=== PATIENT | male | born 1965 | race Caucasian/White ===

== ENCOUNTER 2017-10-27 12:43 | Emergency (ER) | payer OTHER ==
[2017-10-27] MEDS ORDERED: Sodium Chloride 0.9% 10 ML Syringe FLUSH PRN (12:52)
--- NOTE | 2017-10-27 13:07 | EDM.PDOC ---
ED HPI GENERAL MEDICAL PROBLEM - General Chief Complaint: Respiratory Problem Stated Complaint: [facility] Time Seen by Provider: 10/27/17 12:45 Source of Information: Reports: Patient History Limitations: Reports: No Limitations - History of Present Illness INITIAL COMMENTS - FREE TEXT/NARRATIVE: 52-year-old male presents from the [place] ambulance service for evaluation and treatment of wheezing and shortness of breath. Reportedly the patient was at [facility] [facility] ambulance clinic today. They were concerned that he was having an NV and was sent to us for further management and care. Patient reports he has been feeling ill for the last 2 days. Reports symptoms of shortness of breath, wheezing, nausea, vomiting and diarrhea. He states that he's had some chest tightness and feels he has difficulty taking a breath but does not report any chest pain. Patient was given 125 mg Solu-Medrol and albuterol neb prior to arrival in the ER by EMS. Reports that his symptoms have substantially improved since coming to the ER. Reportedly the patient had a chest x-ray and influenza screen done in [place], the influenza screen was negative. Chest x-ray was unremarkable. 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 - Related Data Allergies Allergy/AdvReac Type Severity Reaction Status Date / Time No Known Allergies Allergy Verified 10/27/17 12:52 Home Meds: Home Meds Albuterol [IJD: Ventolin HFA] 2 puff INH .TWICE DAILY #18 gm 10/27/17 [Rx] Azithromycin [IJD: Azithromycin] 250 mg PO DAILY #6 tab 10/27/17 [Rx] Lisinopril 40 mg PO DAILY 10/27/17 [History] ED ROS GENERAL - Review of Systems Review Of Systems: See Below Constitutional: Reports: Chills Respiratory: Reports: Shortness of Breath, Cough, Sputum Cardiovascular: Reports: Chest Pain (tightness), Lightheadedness (associated wthi coughing) GI/Abdominal: Reports: Diarrhea, Nausea, Vomiting. Denies: Abdominal Pain Neurological: Denies: Syncope ED EXAM, GENERAL - Physical Exam Exam: See Below Exam Limited By: No Limitations General Appearance: Alert, WD/WN, No Apparent Distress, Obese Ears: Normal External Exam Nose: Normal Inspection Throat/Mouth: Normal Inspection, Normal Lips, Normal Voice, No Airway Compromise Respiratory/Chest: No Respiratory Distress, Rhonchi (diffuse bilateral lung bases), Wheezing (expiratory) Cardiovascular: Normal Peripheral Pulses, Regular Rate, Rhythm, No Murmur GI/Abdominal: Soft, Non-Tender Neurological: Alert, Oriented, Normal Cognition Psychiatric: Normal Affect, Normal Mood Skin Exam: Warm, Dry, Normal Color EKG INTERPRETATION EKG Date: 10/27/17 Time: 13:40 Rhythm: NSR Rate (Beats/Min): 82 [place]: Normal P-Wave: Present QRS: RBBB (incomplete) ST-T: Normal QT: Normal EKG Interpretation Comments: NSR at 822 bpm. No acute changes. Incomplete RBBB. Reviewed by myself and Dr. Sharpe. Course - Vital Signs Last Recorded V/S: Last Vital Signs Temp 36.2 C 10/27/17 12:48 Pulse 86 10/27/17 12:48 Resp 22 H 10/27/17 12:48 BP 157/115 H 10/27/17 12:48 Pulse Ox 94 L 10/27/17 12:48 - Orders/Labs/Meds Orders: Active Orders 24 hr Category Date Time Status Cardiac Monitoring [RC] . DIRECTED Care 10/27/17 12:52 Active EKG Documentation Completion [RC] ASDIRECTED Care 10/27/17 12:53 Active Peripheral IV Care [RC] . DIRECTED Care 10/27/17 12:53 Active Chest 2V [CR] Stat Exams 10/27/17 12:52 Taken CULTURE BLOOD [BC] Stat Lab 10/27/17 13:10 Received CULTURE BLOOD [BC] Stat Lab 10/27/17 13:22 Received Blood Culture x2 Reflex Set [OM.PC] Stat Oth 10/27/17 12:52 Ordered Peripheral IV Insertion Adult [OM.PC] Routine Oth 10/27/17 12:52 Ordered EKG 12 Lead [EK] Stat Ther 10/27/17 12:52 Ordered Labs: Laboratory Tests 10/27/17 10/27/17 10/27/17 Range/Units 13:10 13:10 13:10 WBC 8.35 (4.23-9.07) K/mm3 RBC 5.35 (4.63-6.08) M/mm3 Hgb 15.3 (13.7-17.5) gm/L Hct 46.8 (40.1-51.0) % MCV 87.5 (79.0-92.2) fl MCH 28.6 (25.7-32.2) pg MCHC 32.7 (32.2-35.5) g/dl RDW Std Deviation 48.2 H (35.1-43.9) fL Plt Count 254 (163-337) K/mm3 MPV 9.5 (9.4-12.3) fl Neutrophils % (Manual) 75 H (40-60) % Band Neutrophils % 1 (0-10) % Lymphocytes % (Manual) 17 L (20-40) % Atypical Lymphs % 0 % Monocytes % (Manual) 4 (2-10) % Eosinophils % (Manual) 3 (0.8-7.0) % Basophils % (Manual) 0 L (0.2-1.2) Platelet Estimate Adequate RBC Morph Comment Normal Sodium 143 (136-145) mEq/L Potassium 3.5 (3.5-5.1) mEq/L Chloride 105 (98-107) mEq/L Carbon Dioxide 28 (21-32) mEq/L Anion Gap 13.5 (5-15) BUN 11 (7-18) mg/dL Creatinine 0.7 (0.7-1.3) mg/dL Est Cr Clr Drug Dosing 130.36 mL/min Estimated GFR (MDRD) > 60 (>60) mL/min BUN/Creatinine Ratio 15.7 (14-18) Glucose 131 H (74-106) mg/dL Lactic Acid 1.4 (0.4-2.0) mmol/L Calcium 9.0 (8.5-10.1) mg/dL Total Bilirubin 0.5 (0.2-1.0) mg/dL AST 25 (15-37) U/L ALT 57 (16-63) U/L Alkaline Phosphatase 62 (46-116) U/L Troponin I < 0.017 (0.00-0.056) ng/mL C-Reactive Protein 2.4 H* (<1.0) mg/dL NT-Pro-B Natriuret Pep 63 (0-125) pg/mL Total Protein 7.1 (6.4-8.2) g/dl Albumin 3.5 (3.4-5.0) g/dl Globulin 3.6 gm/dL Albumin/Globulin Ratio 1.0 (1-2) Lipase 83 (73-393) U/L Urine Color (Yellow) Urine Appearance (Clear) Urine pH (5.0-8.0) Ur Specific [place] (1.005-1.030) Urine Protein (Negative) Urine Glucose (UA) (Negative) Urine Ketones (Negative) Urine Occult Blood (Negative) Urine Nitrite (Negative) Urine Bilirubin (Negative) Urine Urobilinogen (0.2-1.0) Ur Leukocyte Esterase (Negative) Urine RBC (0-5) /hpf Urine WBC (0-5) /hpf Ur Epithelial Cells (0-5) /hpf Urine Bacteria (FEW) /hpf Urine Mucus (FEW) /hpf 10/27/17 10/27/17 Range/Units 14:00 16:24 WBC (4.23-9.07) K/mm3 RBC (4.63-6.08) M/mm3 Hgb (13.7-17.5) gm/L Hct (40.1-51.0) % MCV (79.0-92.2) fl MCH (25.7-32.2) pg MCHC (32.2-35.5) g/dl RDW Std Deviation (35.1-43.9) fL Plt Count (163-337) K/mm3 MPV (9.4-12.3) fl Neutrophils % (Manual) (40-60) % Band Neutrophils % (0-10) % Lymphocytes % (Manual) (20-40) % Atypical Lymphs % % Monocytes % (Manual) (2-10) % Eosinophils % (Manual) (0.8-7.0) % Basophils % (Manual) (0.2-1.2) Platelet Estimate RBC Morph Comment Sodium (136-145) mEq/L Potassium (3.5-5.1) mEq/L Chloride (98-107) mEq/L Carbon Dioxide (21-32) mEq/L Anion Gap (5-15) BUN (7-18) mg/dL Creatinine (0.7-1.3) mg/dL Est Cr Clr Drug Dosing mL/min Estimated GFR (MDRD) (>60) mL/min BUN/Creatinine Ratio (14-18) Glucose (74-106) mg/dL Lactic Acid (0.4-2.0) mmol/L Calcium (8.5-10.1) mg/dL Total Bilirubin (0.2-1.0) mg/dL AST (15-37) U/L ALT (16-63) U/L Alkaline Phosphatase (46-116) U/L Troponin I < 0.017 (0.00-0.056) ng/mL C-Reactive Protein (<1.0) mg/dL NT-Pro-B Natriuret Pep (0-125) pg/mL Total Protein (6.4-8.2) g/dl Albumin (3.4-5.0) g/dl Globulin gm/dL Albumin/Globulin Ratio (1-2) Lipase (73-393) U/L Urine Color Yellow (Yellow) Urine Appearance Clear (Clear) Urine pH 6.5 (5.0-8.0) Ur Specific [place] 1.025 (1.005-1.030) Urine Protein Trace H (Negative) Urine Glucose (UA) Negative (Negative) Urine Ketones 1+ H (Negative) Urine Occult Blood Negative (Negative) Urine Nitrite Negative (Negative) Urine Bilirubin 1+ H (Negative) Urine Urobilinogen 0.2 (0.2-1.0) Ur Leukocyte Esterase Negative (Negative) Urine RBC 0-5 (0-5) /hpf Urine WBC 0-5 (0-5) /hpf Ur Epithelial Cells 0-5 (0-5) /hpf Urine Bacteria Few (FEW) /hpf Urine Mucus Many H (FEW) /hpf Meds: Medications Discontinued Medications Generic Name Dose Route Start Last Admin Trade Name Freq PRN Reason Stop Dose Admin Sodium Chloride 10 ml 10/27/17 12:52 10/27/17 13:01 Saline Flush FLUSH 10 ml ASDIRECTED PRN Administration Keep Vein Open - Radiology Interpretation Free Text/Narrative:: chest xray shows no acute intrathoracoc process. - Re-Assessments/Exams Free Text/Narrative Re-Assessment/Exam: 10/27/17 15:47 I reviewed the labs, ekg and chest xray with the patient. He has eaten. In no obvious distress. Resting comfortable. Declines medication for pain. Plan is to repeat trop at 16:10 and if continues to be negative will treat for bronchitis and send home. 10/27/17 17:00 Repeat troponin returns negative. Will discharge home with albuterol for shortness of breath and a Z-Enrique. Follow-up with primary care provider in one week. Departure - Departure Time of Disposition: 17:00 Disposition: Home, Self-Care 01 Condition: Fair Clinical Impression: Bronchitis - Discharge Information Prescriptions: Albuterol [IJD: Ventolin HFA] 2 puff INH .TWICE DAILY #18 gm Azithromycin [IJD: Azithromycin] 250 mg PO DAILY #6 tab Instructions: Acute Bronchitis Referrals: PCP,Not In Area [Primary Care Provider] - Forms: ED Department Discharge Additional Instructions: Azithromycin 2 tabs on day 1 followed by 1 tablet day 2 through 5 for 5 days of antibiotic total. Albuterol 1-2 puffs every 4-6 hours as needed for shortness of breath. [id number] Tylenol or Motrin as needed for additional headache and additional symptom relief. Make sure your are drinking plenty of fluids. Follow-up with your primary care provider in one week for recheck. Please return to the ER if your symptoms change or worsen. - My Orders Last 24 Hours: My Active Orders 10/27/17 12:52 Cardiac Monitoring [RC] . DIRECTED Chest 2V [CR] Stat Blood Culture x2 Reflex Set [OM.PC] Stat Peripheral IV Insertion Adult [OM.PC] Routine EKG 12 Lead [EK] Stat 10/27/17 12:53 EKG Documentation Completion [RC] ASDIRECTED Peripheral IV Care [RC] . DIRECTED 10/27/17 13:10 CULTURE BLOOD [BC] Stat 10/27/17 13:22 CULTURE BLOOD [BC] Stat - Assessment/Plan Last 24 Hours: My Active Orders 10/27/17 12:52 Cardiac Monitoring [RC] . DIRECTED Chest 2V [CR] Stat Blood Culture x2 Reflex Set [OM.PC] Stat Peripheral IV Insertion Adult [OM.PC] Routine EKG 12 Lead [EK] Stat 10/27/17 12:53 EKG Documentation Completion [RC] ASDIRECTED Peripheral IV Care [RC] . DIRECTED 10/27/17 13:10 CULTURE BLOOD [BC] Stat 10/27/17 13:22 CULTURE BLOOD [BC] Stat
--- NOTE | 2017-10-28 07:03 | CR ---
Chest: Two views of the chest were obtained. Comparison: No prior study. Heart size and mediastinum are normal. Lungs are clear. Diaphragms are slightly flattened on the lateral view. Bony structures are unremarkable. Impression: 1. Questionable emphysematous change. Nothing acute is seen. Diagnostic code #2
== END 2017-10-27 17:17 | disposition home or self-care (01) ==
LOC: JD.ED 12:43
DX: J40 Bronchitis, not specified as acute or chronic (principal); Z79.899 Other long term (current) drug therapy
CPT/HCPCS: 36415; 71046; 80053; 81001; 83605; 83690; 83880; 84484; 85025; 86140; 87040; 87804; 93005; 99285; J7050; 93010; 99283-25

== ENCOUNTER 2021-06-20 10:12 | Emergency (ER) | payer BC, OTHER ==
--- NOTE | 2021-06-20 11:11 | CR ---
Chest: PA and lateral views of the chest were obtained. Comparison: Prior chest x-ray of 10/27/17. Heart size and mediastinum are normal. Lungs show slight atelectasis on the lateral view within the lingula. Lungs otherwise are clear. Diaphragms are flattened on the lateral view. Mild degenerative change is noted within the right shoulder. Slight anterior wedge deformity within the lower thoracic spine is seen which is stable. Impression: 1. Findings believed to be nonacute as noted above. 2. Probable emphysematous change. 3. Nothing acute is seen on 2 view chest x-ray. Diagnostic code #2
[2021-06-20] MEDS ORDERED: Aspirin 81 MG Tab.Chew PO ONE (11:33)
[2021-06-20] MEDS ORDERED: Heparin Sodium 5,000 Units/ML Vial IVPUSH ONE (11:33)
[2021-06-20] MEDS ORDERED: Heparin Sodium/D5W 25,000 UNITS/500 ML BAG IV SCH (11:45)
--- NOTE | 2021-06-20 11:46 | EDM.PDOC ---
ED HPI GENERAL MEDICAL PROBLEM - General Chief Complaint: Chest Pain Stated Complaint: CHEST PAIN Time Seen by Provider: 06/20/21 10:14 Source of Information: Reports: Patient, RN Notes Reviewed History Limitations: Reports: No Limitations - History of Present Illness INITIAL COMMENTS - FREE TEXT/NARRATIVE: Patient is a 56-year-old male presenting to the emergency department with complaints of right-sided and midsternal chest pain that began yesterday. 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 The pain improves when he is resting but worsens with any type of exertion. States the pain is not present at this time but anytime he exerts himself in any way it returns. He does complain of shortness of breath associated with this pain. He has a history of hypertension as well as "lung issues "related to being a previous 3 pack/day smoker. He is not sure if he is ever been formally diagnosed with COPD. Currently uses albuterol inhaler twice daily. He denies any history of GA. Also reports that a few days ago, he noticed a mostly healed bruise to his right upper chest. He is unsure the cause of this. He is also been experiencing a mild rash which lynn on his right forearm began about 3 days ago, however he states this is mostly resolved. Right Chest Pain Score (Numeric/FACES): 8 - Related Data Allergies Allergy/AdvReac Type Severity Reaction Status Date / Time No Known Allergies Allergy Verified 06/20/21 10:29 Home Meds: Home Meds Lisinopril 40 mg PO BID 10/27/17 [History] Albuterol [IJD: Ventolin HFA] 2 puff INH BID 06/20/21 [History] Metoprolol Tartrate 50 mg PO BID 06/20/21 [History] hydroCHLOROthiazide [Hydrochlorothiazide] 12.5 mg PO DAILY 06/20/21 [History] Past Medical History Cardiovascular History: Reports: Hypertension Musculoskeletal History: Reports: Other (See Below) Other Musculoskeletal History: broken right wrist Endocrine/Metabolic History: Reports: Obesity/BMI 30+ - Past Surgical History GI Surgical History: Reports: Hernia, Abdominal Social & Family History - Family History Family Medical History: No Pertinent Family History - Tobacco Use Tobacco Use Status *Q: Never Tobacco User - Caffeine Use Caffeine Use: Reports: Coffee - Recreational Drug Use Recreational Drug Use: No ED ROS GENERAL - Review of Systems Review Of Systems: See Below Constitutional: Reports: No Symptoms. Denies: Fever, Chills HEENT: Reports: No Symptoms Respiratory: Reports: Shortness of Breath. Denies: Wheezing, Cough Cardiovascular: Reports: Chest Pain, Dyspnea on Exertion. Denies: Lightheadedness, Palpitations Endocrine: Reports: No Symptoms GI/Abdominal: Reports: No Symptoms : Reports: No Symptoms Musculoskeletal: Reports: No Symptoms Skin: Reports: Bruising, Rash Neurological: Reports: No Symptoms Psychiatric: Reports: No Symptoms Hematologic/Lymphatic: Reports: No Symptoms Immunologic: Reports: No Symptoms ED EXAM, GENERAL - Physical Exam Exam: See Below Exam Limited By: No Limitations General Appearance: Alert, WD/WN, No Apparent Distress Respiratory/Chest: No Respiratory Distress, No Accessory Muscle Use, Chest Non- Tender, Other (Faint expiratory wheeze throughout lung carrion. Faint, yellowish hue to the right upper chest near the shoulder suggestive of mostly healed ecchymosis. No tenderness over this area.) Cardiovascular: Normal Peripheral Pulses, Regular Rate, Rhythm, No Edema, No Gallop, No JVD, No Murmur, No Rub GI/Abdominal: Normal Bowel Sounds, Soft, Non-Tender, No Organomegaly, No Abnormal Bruit, No Mass Extremities: Other Neurological: Alert, Oriented, CN II-XII Intact, Normal Cognition, Normal Gait, Normal Reflexes, No Motor/Sensory Deficits Psychiatric: Normal Affect, Normal Mood Skin Exam: Warm, Dry, Intact, Normal Color, Rash (Mild maculopapular rash to the right forearm.) #1 Interpretation EKG Date: 06/20/21 Time: 10:25 Rhythm: NSR Rate (Beats/Min): 82 [place]: Normal P-Wave: Present QRS: RBBB ST-T: Normal QT: Normal Course - Vital Signs Last Recorded V/S: Last Vital Signs Temp 97.4 F 06/20/21 10:26 Pulse 80 06/20/21 13:07 Resp 20 06/20/21 13:07 BP 104/67 06/20/21 13:07 Pulse Ox 93 L 06/20/21 13:07 - Orders/Labs/Meds Labs: Laboratory Tests 06/20/21 06/20/21 06/20/21 Range/Units 10:52 10:52 10:52 WBC (4.23-9.07) K/mm3 RBC (4.63-6.08) M/mm3 Hgb (13.7-17.5) gm/dl Hct (40.1-51.0) % MCV (79.0-92.2) fl MCH (25.7-32.2) pg MCHC (32.2-35.5) g/dl RDW Std Deviation (35.1-43.9) fL Plt Count (163-337) K/mm3 MPV (9.4-12.3) fl Neut % (Auto) (34.0-67.9) % Lymph % (Auto) (21.8-53.1) % Whit[place] % (Auto) (5.3-12.2) % Eos % (Auto) (0.8-7.0) Baso % (Auto) (0.1-1.2) % Neut # (Auto) (1.78-5.38) K/mm3 Lymph # (Auto) (1.32-3.57) K/mm3 [place]ley # (Auto) (0.30-0.82) K/mm3 Eos # (Auto) (0.04-0.54) K/mm3 Baso # (Auto) (0.01-0.08) K/mm3 PT 11.5 (9.7-12.0) SECONDS INR 1.08 APTT 27.3 (21.7-31.4) SECONDS D-Dimer, Quantitative 0.24 (0.19-0.50) mg/L Sodium 141 (136-145) mEq/L Potassium 4.7 (3.5-5.1) mEq/L Chloride 106 (98-107) mEq/L Carbon Dioxide 27 (21-32) mEq/L Anion Gap 12.7 (5-15) BUN 47 H D (7-18) mg/dL Creatinine 1.3 (0.7-1.3) mg/dL Est Cr Clr Drug Dosing 69.19 mL/min Estimated GFR (MDRD) 58 (>60) mL/min BUN/Creatinine Ratio 36.2 H (14-18) Glucose 207 H (70-99) mg/dL Calcium 8.5 (8.5-10.1) mg/dL Magnesium 1.7 L (1.8-2.4) mg/dL Total Bilirubin 0.4 (0.2-1.0) mg/dL AST 40 H (15-37) U/L ALT 72 H (16-63) U/L Alkaline Phosphatase 75 (46-116) U/L Troponin I 0.156 H* (0.00-0.056) ng/mL NT-Pro-B Natriuret Pep (0-125) pg/mL Total Protein 7.1 (6.4-8.2) g/dl Albumin 3.3 L (3.4-5.0) g/dl Globulin 3.8 gm/dL Albumin/Globulin Ratio 0.9 L (1-2) SARS-CoV-2 RNA (JEAN) (NEGATIVE) 06/20/21 06/20/21 06/20/21 Range/Units 10:52 10:52 11:00 WBC 6.72 (4.23-9.07) K/mm3 RBC 5.00 (4.63-6.08) M/mm3 Hgb 14.9 (13.7-17.5) gm/dl Hct 45.1 (40.1-51.0) % MCV 90.2 (79.0-92.2) fl MCH 29.8 (25.7-32.2) pg MCHC 33.0 (32.2-35.5) g/dl RDW Std Deviation 44.1 H (35.1-43.9) fL Plt Count 357 H D (163-337) K/mm3 MPV 9.5 (9.4-12.3) fl Neut % (Auto) 53.4 (34.0-67.9) % Lymph % (Auto) 36.0 (21.8-53.1) % [place] % (Auto) 7.0 (5.3-12.2) % Eos % (Auto) 2.7 (0.8-7.0) Baso % (Auto) 0.6 (0.1-1.2) % Neut # (Auto) 3.59 (1.78-5.38) K/mm3 Lymph # (Auto) 2.42 (1.32-3.57) K/mm3 [place] # (Auto) 0.47 (0.30-0.82) K/mm3 Eos # (Auto) 0.18 (0.04-0.54) K/mm3 Baso # (Auto) 0.04 (0.01-0.08) K/mm3 PT (9.7-12.0) SECONDS INR APTT (21.7-31.4) SECONDS D-Dimer, Quantitative (0.19-0.50) mg/L Sodium (136-145) mEq/L Potassium (3.5-5.1) mEq/L Chloride (98-107) mEq/L Carbon Dioxide (21-32) mEq/L Anion Gap (5-15) BUN (7-18) mg/dL Creatinine (0.7-1.3) mg/dL Est Cr Clr Drug Dosing mL/min Estimated GFR (MDRD) (>60) mL/min BUN/Creatinine Ratio (14-18) Glucose (70-99) mg/dL Calcium (8.5-10.1) mg/dL Magnesium (1.8-2.4) mg/dL Total Bilirubin (0.2-1.0) mg/dL AST (15-37) U/L ALT (16-63) U/L Alkaline Phosphatase (46-116) U/L Troponin I (0.00-0.056) ng/mL NT-Pro-B Natriuret Pep 98 (0-125) pg/mL Total Protein (6.4-8.2) g/dl Albumin (3.4-5.0) g/dl Globulin gm/dL Albumin/Globulin Ratio (1-2) SARS-CoV-2 RNA (JEAN) Negative (NEGATIVE) Meds: Medications Discontinued Medications Generic Name Dose Route Start Last Admin Trade Name Jaskaran PRN Reason Stop Dose Admin Aspirin 324 mg 06/20/21 11:33 06/20/21 11:42 Aspirin 81 Mg Tab.Chew PO 06/20/21 11:34 324 mg ONETIME ONE Administration Famotidine Confirm 06/20/21 14:30 06/20/21 15:06 Famotidine 20 Mg/2 Ml Sdv Administered 06/20/21 14:31 Not Given Dose 20 mg .ROUTE .STK-MED ONE Famotidine 20 mg 06/20/21 14:30 06/20/21 14:30 Famotidine 20 Mg/2 Ml Sdv IVPUSH 06/20/21 14:31 20 mg ONETIME ONE Administration Heparin Sodium (Porcine) 4,000 units 06/20/21 11:33 06/20/21 11:43 Heparin Sodium 5,000 Units/Ml Vial IVPUSH 06/20/21 11:34 4,000 units .BOLUS ONE Administration Heparin Sodium/Dextrose 25,000 units in 500 mls @ 20 mls/hr 06/20/21 11:45 06/20/21 11:43 Heparin 25,000 Units In D5w 500 Ml IV 1,000 units/hr TITRATE SYED 20 mls/hr Administration Protocol 1,000 UNITS/HR Lorazepam 0.5 mg 06/20/21 12:06 06/20/21 12:11 Lorazepam 2 Mg/Ml Sdv IVPUSH 06/20/21 12:07 0.5 mg ONETIME ONE Administration Lorazepam Confirm 06/20/21 12:08 06/20/21 12:14 Lorazepam 2 Mg/Ml Sdv Administered 06/20/21 12:09 Not Given Dose 2 mg .ROUTE .[facility] ONE - Re-Assessments/Exams Free Text/Narrative Re-Assessment/Exam: Patient is a 56-year-old male presenting to the emergency department with complaints of right-sided chest pain since yesterday. Reports when he rests the symptoms essentially resolved, however any exertion causes pain to return. Denies any known chest wall injuries. He also has a mostly healed bruise to his right shoulder which she is unsure of its etiology. He has a very faint maculopapular rash to his right forearm which he states is mostly resolved. I have ordered cardiac work-up including blood work, chest x-ray, EKG, and Covid test. 06/20/21 1145 Hematology is significant for BUN 47, glucose 207, magnesium 1.7, AST 40, ALT 72, troponin 0.156. D-dimer is normal. Patient's elevation in troponin and s ymptoms, he is suffering from non-STEMI. I have ordered aspirin 324 mg orally as well as heparin drip with bolus to be started. We will begin making calls to tertiary care centers for transfer. 06/20/21 1230 Phone calls have been made to tertiary care facilities throughout the [facility]. There are no beds available. Phone call was made to [facility] in [facility]. Dr. Peng has accepted patient for transfer. They will send their [employer] team to transport him. Patient updated and he is in agreement. Vital signs remained stable. Patient is resting comfo rtably and denies any significant chest pain. Departure - Departure Time of Disposition: 12:30 Disposition: DC/Tfer to Acute Hospital 02 Reason for Transfer *Q: Primary PCI Indicated Condition: Good Clinical Impression: Non-STEMI (non-ST elevated myocardial infarction) Referrals: Lani Valdovinos NP [Primary Care Provider] - Forms: ED Department Discharge Sepsis Event Note (ED) - Evaluation Sepsis Screening Result: No Definite Risk - Focused Exam Vital Signs: Vital Signs Temp Pulse Resp BP Pulse Ox 06/20/21 13:07 80 20 104/67 93 L 06/20/21 12:17 81 18 106/72 95 06/20/21 10:26 97.4 F 83 23 H 106/74 98
[2021-06-20] MEDS ORDERED: LORazepam 2 MG/ML SDV IVPUSH ONE (12:06)
[2021-06-20] MEDS ORDERED: LORazepam 2 MG/ML SDV ONE (12:08)
[2021-06-20] MEDS ORDERED: Famotidine 20 MG/2 ML SDV IVPUSH ONE (14:30)
[2021-06-20] MEDS ORDERED: Famotidine 20 MG/2 ML SDV ONE (14:30)
== END 2021-06-20 14:35 ==
LOC: JD.ED 10:12
DX: I21.4 Non-ST elevation (NSTEMI) myocardial infarction (principal); I10 Essential (primary) hypertension; E66.9 Obesity, unspecified; Z68.41 Body mass index [BMI] 40.0-44.9, adult; Z20.822 Contact with and (suspected) exposure to COVID-19
CPT/HCPCS: 36415; 71046; 80053; 83735; 83880; 84484; 85025; 85379; 85610; 85730; 87635; 93005; 96365; 96375; 99285; A9270; J1644; J2060; J3490; 93010; U0002

== ENCOUNTER 2022-04-01 10:41 | Emergency (ER) | payer BC ==
[2022-04-01] MEDS ORDERED: Sodium Chloride 0.9% 10 ML Syringe FLUSH PRN (10:59)
[2022-04-01] MEDS ORDERED: Benzonatate 100 MG Cap PO ONE (11:15)
[2022-04-01] MEDS ORDERED: Albuterol 0.083% 2.5 MG/3 ML Neb Soln NEB ONE (11:15)
[2022-04-01 12:20] LABS: CORONAVIRUS COVID-19 NAA NEGATIVE (NEGATIVE)
[2022-04-01] MEDS ORDERED: predniSONE 20 MG Tab PO ONE (12:56)
[2022-04-01] MEDS ORDERED: Doxycycline 100 MG Cap PO ONE (12:56)
== END 2022-04-01 13:30 | disposition home or self-care (01) ==
LOC: JD.ED 10:41
DX: J40 Bronchitis, not specified as acute or chronic (principal); I10 Essential (primary) hypertension; E66.9 Obesity, unspecified; Z68.39 Body mass index [BMI] 39.0-39.9, adult; Z79.899 Other long term (current) drug therapy; Z79.84 Long term (current) use of oral hypoglycemic drugs; Z20.822 Contact with and (suspected) exposure to COVID-19
CPT/HCPCS: 0240U; 36415; 71045; 80053; 83735; 83880; 84484; 85025; 86140; 93005; 94640; 99284; A9270; J3490; J7512; 93010

== ENCOUNTER 2025-04-19 11:59 | Emergency (ER) | payer OTHER ==
[2025-04-19 13:35] LABS: BASOPHILS ABSOLUTE AUTO 0.1 K/mm3 (0.0-0.2); BASOPHILS PERCENT AUTO 0.6 % (0.0-1.0); EOSINOPHILS ABSOLUTE AUTO 0.3 K/mm3 (0.0-0.4); EOSINOPHILS PERCENT AUTO 3.3 % (0.0-6.0); IMMATURE GRAN ABSOLUTE AUTO 0.04 K/mm3 (0.00-0.05); IMMATURE GRAN PERCENT AUTO 0.4 % (0.0-0.4); LYMPHOCYTES ABSOLUTE AUTO 3.8 K/mm3 (1.0-4.8); LYMPHOCYTES PERCENT AUTO 36.4 % (24.0-44.0); MEAN PLATELET VOLUME 8.8 fl (9.4-12.4); MONOCYTES ABSOLUTE AUTO 0.6 K/mm3 (0.0-0.8); MONOCYTES PERCENT AUTO 6.0 % (0.0-8.0); NEUTROPHILS ABSOLUTE AUTO 5.6 K/mm3 (1.8-7.7); NEUTROPHILS PERCENT AUTO 53.3 % (41.0-71.0); NRBC ABSOLUTE 0.00 (0.00-0.02); NRBC PERCENT 0.0 % (0.0-0.2); PLATELET COUNT,PLT 299 K/mm3 (150-400); RED BLOOD CELL COUNT 5.28 M/mm3 (4.52-5.90); WHITE BLOOD CELL COUNT,WBC 10.42 K/mm3 (3.9-11.3)
[2025-04-19 13:58] LABS: A/G RATIO 0.9 (1-2); ALANINE AMINOTRANSFERASE,ALT 38.0 U/L (16-63); ASPARTATE AMNIOTRANSFERASE,AST 18.0 U/L (15-37); BILIRUBIN TOTAL 0.5 mg/dL (0.2-1.0); BLOOD UREA NITROGEN,BUN 27.0 mg/dL (7-18); CARBON DIOXIDE,CO2 30.0 mEq/L (21-32); CHLORIDE,CL 102.0 mEq/L (98-107); CREATININE 1.0 mg/dL (0.7-1.3); EST CRCL DRUG DOSING (CG) 83.14 mL/min; ESTIMATED GFR 87.0 mL/min (>60); GLUCOSE RANDOM 96.0 mg/dL (70-99); PHOSPHORUS 3.8 mg/dL (2.6-4.7); POTASSIUM,K 5.5 mEq/L (3.5-5.1); PROTEIN TOTAL,TP 7.4 g/dl (6.4-8.2); SODIUM,NA 138.0 mEq/L (136-145)
[2025-04-19 14:10] LABS: LACTIC ACID 1.7 mmol/L (0.4-2.0)
== END 2025-04-19 15:20 | disposition home or self-care (01) ==
LOC: JD.ED 11:59
DX: J32.9 Chronic sinusitis, unspecified (principal); E83.42 Hypomagnesemia; E87.5 Hyperkalemia; I10 Essential (primary) hypertension; Z79.51 Long term (current) use of inhaled steroids; Z79.899 Other long term (current) drug therapy; Z79.84 Long term (current) use of oral hypoglycemic drugs
CPT/HCPCS: 36415; 71045; 80053; 82140; 83605; 83735; 84100; 85025; 93005; 99284; A9270; 93010